=== PATIENT | female | born 1980 ===

== ENCOUNTER 2021-05-06 10:15 | Inpatient (IN) | payer OTHER ==
[~2021-05-06] VITALS: Ht 180.3 cm; Wt 145.6 kg
[2021-05-06] MEDS ORDERED: VASOTEC20 M1 PO (15:28)
== END 2021-05-11 13:06 | disposition home or self-care (01) | DRG 741 ==
LOC: OB/GYN 05-08 05:19 → O/R 05-08 05:19 → SURH 05-08 08:45 → OB/GYN 05-08 12:09
PROVIDERS: ADMIT Specialist; ATTEND Specialist
PROC: 0UT24ZZ Resection of Bilateral Ovaries, Percutaneous Endoscopic Approach (ICD-10-PCS; 2021-05-08)
PROC: 0UT74ZZ Resection of Bilateral Fallopian Tubes, Percutaneous Endoscopic Approach (ICD-10-PCS; 2021-05-08)
PROC: 07BC4ZZ Excision of Pelvis Lymphatic, Percutaneous Endoscopic Approach (ICD-10-PCS; 2021-05-08)
PROC: 0UT94ZZ Resection of Uterus, Percutaneous Endoscopic Approach (ICD-10-PCS; principal; 2021-05-08 08:45)
DX: C54.1 Malignant neoplasm of endometrium (principal); N72 Inflammatory disease of cervix uteri; N83.8 Other noninflammatory disorders of ovary, fallopian tube and broad ligament; N83.292 Other ovarian cyst, left side; N83.291 Other ovarian cyst, right side; E66.01 Morbid (severe) obesity due to excess calories; E11.9 Type 2 diabetes mellitus without complications; I10 Essential (primary) hypertension